=== PATIENT | female | born 1990 | race Two or more races ===

== ENCOUNTER 2019-11-12 05:18 | Emergency (ER) | payer OTHER ==
[~2019-11-12] VITALS: Ht 157.5 cm; Wt 56.7 kg
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
[2019-11-12 05:38] VITALS: BP 139/90
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
--- NOTE | 2019-11-12 05:43 | NUR ---
ED Nurse Note: pt down to imaging via wheelchair with electronics maintenance technician. patient able to ambulate with steady gait.
[2019-11-12] MEDS ORDERED: IBUPROFEN600 M1 ORAL (05:52)
--- NOTE | 2019-11-12 06:00 | NUR ---
ED Nurse Note: pt back from imaging via wheelchair with radiation control technician. reports relief of pain from analgesic administration.
[2019-11-12 06:07] VITALS: BP 139/90
--- NOTE | 2019-11-12 06:07 | NUR ---
ER DISCHARGE NOTE: Patient is cleared to be discharged per ERMD, pt is aox4, on room air, with stable vital signs. pt was given dc and prescription instructions, pt was able to verbalize understanding, pt id band removed. pt is able to ambulate with steady gait. pt took all belongings.
--- NOTE | 2019-11-12 14:15 | Diagnostic Imaging Report ---
INDICATION: Neck pain after trauma TECHNIQUE: XRAY C Spine 4v+ Multiple views of the cervical spine were obtained COMPARISON: None FINDINGS: There is straightening of the normal cervical lordosis, which may be due to patient positioning or muscle spasm. No spondylolisthesis. Vertebral body heights are maintained. Disc spaces are preserved. The dens is partially obscured by overlapping maxillary shadows. No prevertebral soft tissue swelling. Visualized lung apices are clear. IMPRESSION: Incompletely evaluated odontoid process. Otherwise, no acute fracture or malalignment.
== END 2019-11-12 06:07 | disposition home or self-care (01) ==
LOC: EMR 05:50
DX: S16.1XXA Strain of muscle, fascia and tendon at neck level, initial encounter (principal); V43.52XA Car driver injured in collision with other type car in traffic accident, initial encounter; Y92.410 Unspecified street and highway as the place of occurrence of the external cause
CPT/HCPCS: 72050; 99283